=== PATIENT | female | born 1995 | race Caucasian/White ===

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

== ENCOUNTER 2017-12-28 05:26 | Emergency (ER) | payer BC ==
[~2017-12-28] VITALS: Ht 157.5 cm; Wt 85.5 kg
[2017-12-28 05:28] VITALS: BP 127/82
[2017-12-28] MEDS ORDERED: LIDOCAINE-MPF 1%, 2ML ONE (05:59)
[2017-12-28] MEDS ORDERED: KETOROLAC 30 MG/1 ML ONE (05:59)
[2017-12-28] MEDS ORDERED: CEFTRIAXONE 250 MG IM ONE (06:00)
[2017-12-28] MEDS ORDERED: AZITHROMYCIN 250 MG TABLET ONE (06:00)
[2017-12-28] MEDS ORDERED: CEFTRIAXONE 1,000 MG ONE (06:00)
[2017-12-28] MEDS ORDERED: KETOROLAC 30 MG/1 ML IM ONE (06:00)
[2017-12-28] MEDS ORDERED: AZITHROMYCIN 500 MG TABLET PO ONE (06:00)
[2017-12-28 06:26] LABS: CULTURE INDICATED? YES; HCG UR SG 1.019 (1.003-1.030); MICROSCOPIC INDICATED
== END 2017-12-28 07:02 | disposition home or self-care (01) ==
LOC: ED 06:56
DX: A60.04 Herpesviral vulvovaginitis (principal)
CPT/HCPCS: 81001; 81025; 87086; 87255; 87491; 87591; 96372; 99284; J0696; J1885